=== PATIENT | female | born 1970 | race Caucasian/White ===

== ENCOUNTER 2019-06-09 09:10 | Emergency (ER) | payer MEDICAID ==
[~2019-06-09] VITALS: Ht 160 cm; Wt 63.0 kg
[~2019-06-09 09:10] MED LIST: ALBU18HF2 INH; BACL20TA; BENZ-16 PO; CLON-285; GABA-338; GABA-347; LEVA15HF4; MELO-83; NORT50CA; OXYC15TA88; [UNRECOGNIZED DRUG - CODE]
[2019-06-09 09:48] LABS: BASOPHILS # (AUTO) 0.1 X10'3 (0-0.2); BASOPHILS % (AUTO) 0.5 % (0-1); EOSINOPHILS # (AUTO) 0.2 X10'3 (0-0.9); EOSINOPHILS % (AUTO) 1.4 % (0-6); HEMATOCRIT 40.5 % (35.0-45.0); HEMOGLOBIN 13.6 g/dl (12.0-16.0); LYMPHOCYTES # (AUTO) 3.4 X10'3 (1.1-4.8); LYMPHOCYTES % (AUTO) 29.3 % (21-51); MEAN CORPUSCULAR HEMOGLOBIN 30.9 PG (27.0-31.0); MEAN CORPUSCULAR HGB CONC 33.5 g/dL (33.0-36.5); MEAN CORPUSCULAR VOLUME 92.1 FL (78-98); MONOCYTES # (AUTO) 0.6 X10'3 (0-0.9); MONOCYTES % (AUTO) 5.3 % (2-12); NEUTROPHILS # (AUTO) 7.3 X10'3 (1.8-7.7); NEUTROPHILS % (AUTO) 63.5 % (42-75); PLATELET COUNT 239 X10'3 (140-440); RED CELL DISTRIBUTION WIDTH 12.6 % (11.5-14.5); WHITE BLOOD COUNT 11.5 X10'3 (4.5-11.0)
[2019-06-09 10:04] LABS: ALANINE AMINOTRANSFERASE 19 U/L (12-78); ALBUMIN 4.1 G/DL (3.4-5.0); ALBUMIN/GLOBULIN RATIO 1.2 (1.1-1.5); ALKALINE PHOSPHATASE 38 IU/L (46-116); ANION GAP 10 (8-16); ASPARTATE AMINO TRANSFERASE 20 U/L (10-37); BILIRUBIN,TOTAL 0.3 MG/DL (0.1-1.0); BLOOD UREA NITROGEN 17 MG/DL (7-18); CALCIUM 9.1 MG/DL (8.5-10.1); CHLORIDE 106 MMOL/L (99-107); CREATININE 0.74 MG/DL (0.40-0.90); GLUCOSE 92 MG/DL (70-104); POTASSIUM 3.9 MMOL/L (3.5-5.1); SODIUM 142 MMOL/L (135-145); TOTAL CARBON DIOXIDE 26.1 MMOL/L (24-32); TOTAL PROTEIN 7.4 G/DL (6.4-8.2); eGFR 83 ML/MIN
--- NOTE | 2019-06-09 10:27 | NUR ---
breaking primary RN, pt is sitting up in bed, stable
[2019-06-09] MEDS ORDERED: PANT-47 PO (10:42)
[2019-06-09 11:01] LABS: PARTIAL THROMBOPLASTIN TIME 24 SECONDS (22-32)
[2019-06-09 11:29] VITALS: BP 134/76
== END 2019-06-09 11:31 | disposition home or self-care (01) ==
LOC: ER 09:12
DX: R07.89 Other chest pain (principal); E78.00 Pure hypercholesterolemia, unspecified; J44.9 Chronic obstructive pulmonary disease, unspecified; G89.29 Other chronic pain; F17.200 Nicotine dependence, unspecified, uncomplicated; Z56.0 Unemployment, unspecified; Z90.710 Acquired absence of both cervix and uterus; Z98.51 Tubal ligation status; Z98.890 Other specified postprocedural states; Z79.899 Other long term (current) drug therapy
CPT/HCPCS: 36415; 71045; 80053; 84484; 85025; 85610; 85730; 93005; 99284

== ENCOUNTER 2023-06-12 08:51 | Emergency (ER) | payer MEDICAID ==
[~2023-06-12] VITALS: Ht 167.6 cm; Wt 71.8 kg
[~2023-06-12 08:51] MED LIST changes: -CLON-285; +CLON-565; +OXYC15TA; -OXYC15TA88; +PANT-47 PO
[2023-06-12] MEDS ORDERED: HYDROcodone/acetaminophen 5mg/325mg tablet PO ONE (09:55)
[2023-06-12] MEDS ORDERED: ondansetron 4mg rapidly disintigrating tab PO ONE (09:55)
[2023-06-12] MEDS ORDERED: ibuprofen tablet 400 MG TABLET PO ONE (10:15)
[2023-06-12] MEDS ORDERED: IBUP-1986 PO (10:24)
[2023-06-12 11:48] VITALS: BP 156/92; PULSE 78; RESP 17; TEMP 97.6; O2SAT 98
--- NOTE | 2023-06-12 11:49 | NUR ---
tech softrolled pt RIGHT lower leg/ankle/foot, tech then preformed an ankle stirrup cast with orthoglass, tech then softrolled over the orthoglass, then christiana wrapped it. tech checked CSM and informed pt on how to care for cast, pt stated they have had crutches many times before and did not need training. Tech had pt show that they can use the crutches appropriately, tech requested for PA to check splint to make sure everything is appropriate. Tech informed pt that if there is any issues that the pt is welcome to come back to get splint fixed.
== END 2023-06-12 13:45 | disposition home or self-care (01) ==
LOC: ER 08:51
DX: S82.491A Other fracture of shaft of right fibula, initial encounter for closed fracture (principal); M97.21XA Periprosthetic fracture around internal prosthetic right ankle joint, initial encounter; X58.XXXA Exposure to other specified factors, initial encounter; Y93.89 Activity, other specified; Y92.89 Other specified places as the place of occurrence of the external cause; Y99.8 Other external cause status
CPT/HCPCS: 29515; 73610; 99284; A6449